=== PATIENT | female | born 1965 | race Caucasian/White ===

== ENCOUNTER 2024-01-14 01:02 | Inpatient (IN) | payer MEDICARE, OTHER ==
[~2024-01-14] VITALS: Ht 157.5 cm; Wt 62.1 kg
[2024-01-14] VITALS (75 sets, daily range): BP systolic 61–159; BP diastolic 15–90; PULSE 56–78; RESP 11–32; TEMP 96.7–98; O2SAT 85–100
[~2024-01-14 01:02] MED LIST: AMLODIPINE BESYL5 MG PO; ATENOLOL50 MG; ATENOLOL50 MG PO; BENICAR HCT 401 EAC1; BIOTIN5 M1 PO; CALTRATE 600 W1 EACH; CINNAMON PO; CO Q10200 MG PO; CYCLAFEM1 EAC1 PO; FERROUS SULFAT325 MG PO; FISH OIL 1,2001 EAC1; GARLIC1000 MG; LASIX40 MG PO; LEVAQUIN500 MG PO; LISINOPRIL10 MG PO; LYRICA50 MG PO; METOPROLOL TART25 MG PO; MULTIVITAMIN/MINERAL; OMEGA; OMEGA 3; PANTOPRAZOLE SO40 MG PO; SPIRONOLACTONE25 MG PO; VITAMIN C1000 MG PO; [UNRECOGNIZED DRUG - CODE] PO
[2024-01-14 02:06] LABS: BASOPHILS # (AUTO) 0.1 (0.0-0.1); BASOPHILS % 0.3 % (0.0-1.0); HEMATOCRIT 49.5 % (34.2-44.1); HEMOGLOBIN 14.9 g/dL (12.0-16.0); LYMPHOCYTES % 6.4 % (18.0-39.1); MEAN CORPUSCULAR HGB CONC 30.1 g/dL (31-35); MEAN CORPUSCULAR VOLUME 89.8 fL (81-99); MONOCYTES # (AUTO) 1.2 (0.2-0.8); MONOCYTES % 7.8 % (4.4-11.3); NEUTROPHILS # (AUTO) 13.1 (2.1-6.9); NEUTROPHILS % 84.4 % (38.7-80.0); PLATELET COUNT 229 x10e3/uL (140-360); RED BLOOD COUNT 5.51 x10e6/uL (3.6-5.1); RED CELL DISTRIBUTION WIDTH 17.7 % (11.7-14.4); WHITE BLOOD COUNT 15.52 x10e3/uL (4.8-10.8)
[2024-01-14 03:02] LABS: ALBUMIN 3.5 g/dL (3.5-5.0); ALBUMIN/GLOBULIN RATIO 1.1 (0.8-2.0); BILIRUBIN,TOTAL 1.7 mg/dL (0.2-1.2); CALCIUM 9.4 mg/dL (8.4-10.2); CREATININE, SERUM 4.67 mg/dL (0.57-1.11); POTASSIUM 4.3 mmol/L (3.5-5.1); TOTAL PROTEIN 6.6 g/dL (6.5-8.1)
[2024-01-14 03:07] LABS: TROPONIN I 0.113 ng/mL (0-0.300)
[2024-01-14] MEDS ORDERED: DEXTROSE 50% SYRINGE 50 ML IV ONE ×2 (03:17→10:22)
[2024-01-14] MEDS: DEXTROSE 50% SYRINGE 50 ML IV STA ×2 (03:19→23:49)
[2024-01-14 03:25] LABS: ANION GAP 35.3 mmol/L (8-16)
[2024-01-14] MEDS ORDERED: SODIUM CHLORIDE 0.9% 1000ML 1,000 ML IV SCH ×3 (03:45→14:45)
[2024-01-14] MEDS ORDERED: Morphine 4mg INJECTION 4 MG/ML INJ IV PRN (03:45)
[2024-01-14 03:56] LABS: ABG HCO3 10 mmol/L (22-26); ABG PCO2 16 mmHg (35-45); ABG PH 7.39 (7.35-7.45); ABG PO2 87 mmHg (80-105); ABG TCO2 10
[2024-01-14] MEDS: SODIUM BICARBONATE 8.4% SYRING 150 ML in DEXTROSE 5%/0.45% SOD CHL 1,000 ML IV ONE (04:00)
[2024-01-14] MEDS ORDERED: AMBIEN10 MG PO (05:03)
[2024-01-14] MEDS ORDERED: OMEPRAZOLE40 MG PO (05:03)
[2024-01-14] MEDS ORDERED: VALACYCLOVIR500 MG PO (05:03)
[2024-01-14] MEDS ORDERED: METOPROLOL SUCC50 MG PO (05:03)
[2024-01-14] MEDS ORDERED: NIFEDIPINE ER30 M1 PO (05:03)
[2024-01-14] MEDS ORDERED: MYCOPHENOLATE250 MG PO (05:03)
[2024-01-14] MEDS ORDERED: AMITRIPTYLINE H10 MG PO (05:03)
[2024-01-14] MEDS ORDERED: ROSUVASTATIN CA10 MG PO (05:03)
[2024-01-14] MEDS ORDERED: ULORIC40 MG PO (05:03)
[2024-01-14] MEDS ORDERED: SODIUM CHLORIDE 0.45% IV ONE (06:15)
[2024-01-14] MEDS ORDERED: SODIUM BICARBONATE 8.4% IV ONE (06:15)
[2024-01-14] MEDS: SODIUM CHLORIDE 0.45% IV ONE (06:32)
[2024-01-14] MEDS: SODIUM BICARBONATE 8.4% IV ONE (06:32)
[2024-01-14] MEDS: ONDANSETRON HCL INJ 2MG/ML 2ML 2 MG/ML VIAL IV PRN (06:55)
[2024-01-14] MEDS: DEXTROSE 50% SYRINGE 50 ML IV PRN (08:29)
[2024-01-14] MEDS: SODIUM BICARBONATE 8.4% VIAL 150 ML in DEXTROSE 5% 1,000 ML IV SCH ×2 (09:18→17:19)
[2024-01-14 10:14] LABS: ALBUMIN 3.4 g/dL (3.5-5.0); ANION GAP 32.2 mmol/L (8-16); BILIRUBIN,TOTAL 1.6 mg/dL (0.2-1.2); CALCIUM 9.1 mg/dL (8.4-10.2); CREATININE, SERUM 4.83 mg/dL (0.57-1.11); POTASSIUM 4.2 mmol/L (3.5-5.1); TOTAL PROTEIN 6.7 g/dL (6.5-8.1)
[2024-01-14] MEDS ORDERED: SODIUM BICARBONATE 8.4% INJ 50 ML SYR ONE (10:22)
[2024-01-14] MEDS ORDERED: MAGNESIUM SULF 1GRAM/DEXTROSE PREMIX BAG 100ML IV ONE (10:22)
[2024-01-14] MEDS ORDERED: ATROPINE SULFATE 0.1 MG/ML 10ML SYR ONE (10:22)
[2024-01-14] MEDS ORDERED: EPINEPHRINE HCL SYRINGE ONE (10:22)
[2024-01-14] MEDS ORDERED: SUCCINYLCHOLINE CHLORIDE 20 MG/ML 10ML VIAL ONE (10:24)
[2024-01-14] MEDS ORDERED: ETOMIDATE 2 MG/ML 10 ML INJ IV ONE (10:24)
[2024-01-14 12:39] LABS: ABG HCO3 9 mmol/L (22-26); ABG PCO2 16 mmHg (35-45); ABG PH 7.34 (7.35-7.45); ABG PO2 87 mmHg (80-105); ABG TCO2 9
[2024-01-14] MEDS: SODIUM BICARBONATE 8.4% INJ 50 ML SYR IV ONE (12:58)
[2024-01-14] MEDS: SODIUM BICARBONATE 8.4% INJ 50 ML SYR IV SCH (13:38)
[2024-01-14 13:53] LABS: TROPONIN I 0.15 ng/mL (0-0.300)
[2024-01-14] MEDS ORDERED: MANNITOL 25% 12.5GM/50ML 100 ML ONE (15:30)
[2024-01-14] MEDS: PANTOPRAZOLE SOD 40 MG TABEC PO ONE (17:19)
[2024-01-14] MEDS ORDERED: MANNITOL 25% 12.5GM/50 ML VIAL IV PRN (17:45)
[2024-01-14] MEDS ORDERED: SODIUM CHLORIDE 0.9% 1000ML 2,000 ML IV PRN (17:45)
[2024-01-14] MEDS ORDERED: CALCIUM CHLORIDE 10% SYRINGE 10 ML IV ONE (18:41)
[2024-01-14] MEDS ORDERED: CALCIUM GLUC 1 G/50 ML NACL 50 ML IV ONE (18:41)
[2024-01-14] MEDS ORDERED: NOREPINEPHRINE 8 MG/D5W 250 ML 250 ML ONE (18:46)
[2024-01-14] MEDS: NOREPINEPHRINE 8 MG/D5W 250 ML 250 ML IV SCH (18:47)
[2024-01-14 18:53] LABS: BASOPHILS # (AUTO) 0.1 (0.0-0.1); BASOPHILS % 0.2 % (0.0-1.0); HEMATOCRIT 44.9 % (34.2-44.1); HEMOGLOBIN 13.9 g/dL (12.0-16.0); LYMPHOCYTES # (AUTO) 2.3 (1.0-3.2); LYMPHOCYTES % 10.5 % (18.0-39.1); MEAN CORPUSCULAR HEMOGLOBIN 27.2 pg (28-32); MEAN CORPUSCULAR VOLUME 87.9 fL (81-99); MONOCYTES # (AUTO) 2.7 (0.2-0.8); MONOCYTES % 12.2 % (4.4-11.3); NEUTROPHILS # (AUTO) 16.6 (2.1-6.9); NEUTROPHILS % 75.3 % (38.7-80.0); PLATELET COUNT 114 x10e3/uL (140-360); RED BLOOD COUNT 5.11 x10e6/uL (3.6-5.1)
[2024-01-14 19:10] LABS: ANION GAP 29.4 mmol/L (8-16); CREATININE, SERUM 3.44 mg/dL (0.57-1.11); POTASSIUM 4.4 mmol/L (3.5-5.1)
[2024-01-14 19:11] LABS: ALBUMIN/GLOBULIN RATIO 1.1 (0.8-2.0); BILIRUBIN,TOTAL 1.6 mg/dL (0.2-1.2); TOTAL PROTEIN 5.7 g/dL (6.5-8.1)
[2024-01-14 19:14] LABS: CALCIUM 13.1 mg/dL (8.4-10.2)
[2024-01-14 19:16] LABS: TROPONIN I 0.171 ng/mL (0-0.300)
[2024-01-14] MEDS ORDERED: IOPAMIDOL 370 MG/ML 100 ML INFUS..BTL INJ ONE (19:41)
[2024-01-14] MEDS: Vancomycin IV 1 GM in SODIUM CHLORIDE 0.9% 250ML 250 ML IV ONE (19:52)
[2024-01-14] MEDS: FENTANYL 2000MCG/NS 250 250 ML IV PRN (19:54)
[2024-01-14] MEDS: DEXMEDETOMIDINE 400MCG/NS100ML 100 ML IV PRN (19:55)
[2024-01-14] MEDS: HEPARIN SOD (PORCINE) 5,000 UNIT/ML VIAL SC SCH (20:17)
[2024-01-14 20:36] LABS: ABG HCO3 17 mmol/L (22-26); ABG PCO2 26 mmHg (35-45); ABG PH 7.42 (7.35-7.45); ABG PO2 417 mmHg (80-105)
[2024-01-14 20:37] LABS: ABG TCO2 18
[2024-01-14] MEDS ORDERED: ZOLPIDEM TARTRATE 10 MG TAB PO PRN (21:00)
[2024-01-14] MEDS ORDERED: VASOPRESSIN 60 UNIT in DEXTROSE 5% 50ML 57 ML IV SCH (23:00)
[2024-01-14] MEDS ORDERED: VASOPRESSIN INJ 20 UNIT/ML VIAL ONE ×2 (23:05→23:21)
[2024-01-14] MEDS ORDERED: VASOPRESSIN 60 UNIT in DEXTROSE 5% 50ML 50 ML IV SCH (23:15)
[2024-01-14] MEDS ORDERED: DEXTROSE 5% 50ML 50 ML IV ONE (23:24)
[2024-01-14] MEDS: VASOPRESSIN 60 UNIT in DEXTROSE 5% 50ML 57 ML IV SCH (23:30)
[2024-01-14] MEDS: DEXTROSE 10% 1,000 ML IV SCH (23:33)
[2024-01-14] MEDS: SODIUM CHLORIDE 0.9% 1000ML 2,000 ML IV ONE (23:34)
[2024-01-14 23:46] LABS: ABG HCO3 16 mmol/L (22-26); ABG PCO2 15 mmHg (35-45); ABG PH 7.63 (7.35-7.45); ABG PO2 264 mmHg (80-105); ABG TCO2 16
[2024-01-15] VITALS (59 sets, daily range): BP systolic 46–213; BP diastolic 16–108; PULSE 52–70; RESP 10–61; TEMP 97–100; O2SAT 82–95
[2024-01-15] MEDS ORDERED: PROPOFOL IV EMULSION 10MG/ML 100 ML IV PRN (00:30)
[2024-01-15] MEDS: SODIUM BICARBONATE 8.4% INJ 50 ML SYR IV STA (00:31)
[2024-01-15 02:16] LABS: ANION GAP 31.9 mmol/L (8-16)
[2024-01-15 02:50] LABS: CALCIUM 7.4 mg/dL (8.4-10.2); CREATININE, SERUM 1.66 mg/dL (0.57-1.11); POTASSIUM 2.9 mmol/L (3.5-5.1)
[2024-01-15] MEDS: CALCIUM GLUC 1 G/50 ML NACL 50 ML IV ONE (03:04)
[2024-01-15] MEDS: POTASSIUM CHLORIDE 20MEQ/100ML 100 ML IV ONE (03:05)
[2024-01-15 07:09] LABS: BASOPHILS # (AUTO) 0.1 (0.0-0.1); BASOPHILS % 0.4 % (0.0-1.0); HEMOGLOBIN 14.8 g/dL (12.0-16.0); LYMPHOCYTES # (AUTO) 0.6 (1.0-3.2); LYMPHOCYTES % 2.7 % (18.0-39.1); MEAN CORPUSCULAR HEMOGLOBIN 27.3 pg (28-32); MEAN CORPUSCULAR HGB CONC 30.2 g/dL (31-35); MEAN CORPUSCULAR VOLUME 90.4 fL (81-99); MONOCYTES # (AUTO) 1.8 (0.2-0.8); MONOCYTES % 7.8 % (4.4-11.3); NEUTROPHILS # (AUTO) 19.9 (2.1-6.9); NEUTROPHILS % 87.8 % (38.7-80.0); PLATELET COUNT 131 x10e3/uL (140-360); RED BLOOD COUNT 5.42 x10e6/uL (3.6-5.1); RED CELL DISTRIBUTION WIDTH 18.3 % (11.7-14.4); WHITE BLOOD COUNT 22.72 x10e3/uL (4.8-10.8)
[2024-01-15] MEDS: PANTOPRAZOLE SOD 40 MG TABEC PO SCH (07:18)
[2024-01-15 09:44] LABS: INR 2.4; PROTHROMBIN TIME 27.3 seconds (11.9-14.5)
[2024-01-15 09:50] LABS: ALBUMIN 2.7 g/dL (3.5-5.0); ALBUMIN/GLOBULIN RATIO 1.1 (0.8-2.0); ANION GAP 25.7 mmol/L (8-16); CALCIUM 7.6 mg/dL (8.4-10.2); CREATININE, SERUM 3.95 mg/dL (0.57-1.11); TOTAL PROTEIN 5.2 g/dL (6.5-8.1)
[2024-01-15 09:55] LABS: POTASSIUM 2.7 mmol/L (3.5-5.1)
[2024-01-15 10:21] LABS: BAND NEUTROPHILS % (MANUAL) 1 %; BASOPHILS % (MANUAL) 1 % (0-1.5); LYMPHOCYTES % (MANUAL) 8 % (19-48); MONOCYTES % (MANUAL) 1 % (3.4-9.0); NEUTROPHILS % (MANUAL) 89 % (40-74); PLATELET ESTIMATE SLIGHTLY DECREASED; PLATELET MORPHOLOGY COMMENT NORMAL; RBC MORPHOLOGY COMMENT NORMAL
[2024-01-15 10:31] LABS: ABG HCO3 25 mmol/L (22-26); ABG PCO2 23 mmHg (35-45); ABG PH 7.64 (7.35-7.45); ABG PO2 168 mmHg (80-105); ABG TCO2 25
[2024-01-15] MEDS ORDERED: EPINEPHRINE HCL 1:1000 1ML 4 MG in DEXTROSE 5% 250ML 250 ML IV SCH (12:30)
[2024-01-15] MEDS ORDERED: POTASSIUM CHLORIDE 20MEQ/100ML 200 ML ONE (12:51)
[2024-01-15] MEDS ORDERED: HYDROCORTISONE SOD SUCCINATE 100 MG VIAL ONE (12:59)
[2024-01-16 11:18] LABS: HEPATITIS B SURFACE AG Negative
[2024-01-16 11:19] LABS: HEPATITIS B CORE AB TOTAL Negative; HEPATITIS C ANTIBODY Non Reactive
== END 2024-01-15 15:46 | disposition expired | DRG 682 ==
LOC: ER 01:14 → ERHOLD 03:37 → ICU 04:13
PROVIDERS: ADMIT Internal Medicine; ATTEND Internal Medicine
PROC: 4A133R1 Monitoring of Arterial Saturation, Peripheral, Percutaneous Approach (ICD-10-PCS; principal; 2024-01-14)
PROC: 5A2204Z Restoration of Cardiac Rhythm, Single (ICD-10-PCS; 2024-01-14)
PROC: 06HY33Z Insertion of Infusion Device into Lower Vein, Percutaneous Approach (ICD-10-PCS; 2024-01-14)
PROC: 0BH17EZ Insertion of Endotracheal Airway into Trachea, Via Natural or Artificial Opening (ICD-10-PCS; 2024-01-14)
PROC: 5A1935Z Respiratory Ventilation, Less than 24 Consecutive Hours (ICD-10-PCS; 2024-01-14)
PROC: 5A1D70Z Performance of Urinary Filtration, Intermittent, Less than 6 Hours Per Day (ICD-10-PCS; 2024-01-14)
PROC: 3E033XZ Introduction of Vasopressor into Peripheral Vein, Percutaneous Approach (ICD-10-PCS; 2024-01-14)
DX: N17.9 Acute kidney failure, unspecified (principal); J96.01 Acute respiratory failure with hypoxia; E87.20 Acidosis, unspecified; Z94.0 Kidney transplant status; N18.4 Chronic kidney disease, stage 4 (severe); I46.9 Cardiac arrest, cause unspecified; M34.9 Systemic sclerosis, unspecified; M32.9 Systemic lupus erythematosus, unspecified; I12.9 Hypertensive chronic kidney disease with stage 1 through stage 4 chronic kidney disease, or unspecified chronic kidney disease; Z11.52 Encounter for screening for COVID-19; E86.0 Dehydration; E16.2 Hypoglycemia, unspecified; R00.1 Bradycardia, unspecified; E87.6 Hypokalemia; E83.52 Hypercalcemia; K21.9 Gastro-esophageal reflux disease without esophagitis; I73.00 Raynaud's syndrome without gangrene; M10.9 Gout, unspecified; R79.89 Other specified abnormal findings of blood chemistry
CPT/HCPCS: 31500; 36415; 36600; 71045; 71250; 71260; 74176; 76770; 80048; 80053; 82010; 82550; 82805; 82948; 83605; 83690; 83735; 83880; 84484; 85025; 85610; 86704; 86706; 86803; 87340; 92950; 93005; 94002; 94003; 99284; J0171; J0330; J0696; J1644; J1720; J2150; J2405; J2543; J3475; J3480; J7030; J7050; J7070; J7799; Q9967; U0002